=== PATIENT | female | born 1980 | race Caucasian/White ===

== ENCOUNTER 2022-02-22 08:39 | Outpatient (CLI) | payer BC, SELFPAY ==
--- NOTE | 2022-02-22 08:50 | MM_ITS ---
WS: [id number] BILATERAL SCREENING DIGITAL TOMOSYNTHESIS MAMMOGRAM WITH CAD HISTORY: SCREENING COMPARISON: 01/21/2021, 02/17/2021 Bilateral CC and MLO views with tomosynthesis and synthetic mammography submitted. Computer aided det ection analyzed. Breast composition: There are scattered areas of fibroglandular density. No suspicious masses, microc alcifications or architectural distortion. Well-circumscribed 18 x 15 mm mass middle depth LEFT breas t at 3:00. There is an adjacent biopsy clip. As per history this is a benign etiology. The LEFT breas t is otherwise negative. Stable RIGHT breast. MM/[place] [id number] IMPRESSION: BI-RADS: 2-Benign FOLLOW UP: 1 Year Follow-up
== END 2022-02-22 08:40 | disposition home or self-care (01) ==
LOC: RAD 08:44
PROVIDERS: PCP Family Medicine; Visit Provider Family Medicine
DX: Z12.31 Encounter for screening mammogram for malignant neoplasm of breast (principal)
CPT/HCPCS: 77063; 77067

== ENCOUNTER 2022-08-02 07:59 | Outpatient (CLI) | payer BC, SELFPAY ==
[2022-08-02 09:06] LABS: Chol HDL Ratio 3.81 mg/dL (0.0-4.40); Cholesterol 137 mg/dL (0-200); HDL Cholesterol 36 mg/dL (60-100); LDL Cholesterol Calculated 59 mg/dL (50-129); LDL HDL Ratio 1.64 RATIO (0.00-3.22); Triglycerides 212 mg/dL (0-150)
== END 2022-08-02 08:00 | disposition home or self-care (01) ==
LOC: LAB 08:03
PROVIDERS: PCP Family Medicine; Visit Provider Internal Medicine
DX: E78.5 Hyperlipidemia, unspecified (principal)
CPT/HCPCS: 36415; 80061

== ENCOUNTER 2022-12-18 09:30 | Emergency (ER) | payer BC, SELFPAY ==
[2022-12-18 09:38] VITALS: BP 131/87; PULSE 78; RESP 16; TEMP 36.6; O2SAT 97; BMI 34.9
--- NOTE | 2022-12-18 09:44 | ECG_ITS ---
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 Measurements Intervals [place] Rate: 69 P: 32 AK: 172 QRS: 6 QRSD: 91 T: 151 QT: 410 QTc: 440 Interpretive Statements SINUS RHYTHM POSSIBLE ANTERIOR MYOCARDIAL INFARCTION , OF INDETERMINATE AGE [30 ms Q WAVE IN V3/V4, OR R < 0.2 mV IN V4] MODERATE T-WAVE ABNORMALITY, CONSIDER LATERAL ISCHEMIA [-0.1+ mV T-WAVE IN I/aVL/V5/V6] No previous ECG available for comparison Electronically Signed On 12-18-2022 15:45:33 CDT by Luke Day M.D. [id number]
--- NOTE | 2022-12-18 10:18 | PC.NURSE ---
PT PLACED ON CONTINUOUS SPO2, NIBP, AND CM.
[2022-12-18] MEDS: meclizine 25 mg tablet PO (10:19)
[2022-12-18] MEDS: sodium chloride 0.9% 1,000 ML 999 ML IV (10:21)
[2022-12-18 10:25] LABS: Basophils # 0.1 10^3/uL (0.0-0.1); Basophils % 0.7 %; Eosinophils # 0.2 10^3/uL (0.0-0.8); Eosinophils % 1.8 %; Hematocrit 40.3 % (37.0-47.0); Hemoglobin 13.5 g/dL (11.5-15.3); Lymphocytes # 2.6 10^3/uL (0.8-4.8); Lymphocytes % 27.7 %; Mean Corpuscular HGB Conc 33.5 g/dL (30.0-36.0); Mean Corpuscular Volume 92.6 fl (81-99); Mean Platelet Volume 9.5 fL (7.4-10.4); Monocytes # 0.6 10^3/uL (0.2-0.9); Monocytes % 6.3 %; Neutrophils # 6.01 10^3/uL (1.8-7.7); Neutrophils % 63.4 %; Nucleated Red Blood Cells % 0 %; Platelet Count 379 10^3/cmm (130-400); Red Blood Count 4.35 10^6/uL (4.1-5.3); Red Cell Distribution Width 13.3 % (12.1-15.1); White Blood Count 9.5 10^3/uL (4.0-10.0)
--- NOTE | 2022-12-18 10:30 | CTR_ITS ---
PROCEDURE INFORMATION: Exam: CT Head Without Contrast Exam date and time: 12/18/2022 10:38 AM Age: 42 years old Clinical indication: Dizziness; Additional info: Dizziness, new, continuous TECHNIQUE: Imaging protocol: Computed tomography of the head without contrast. Radiation optimization: All CT scans at this facility use at least one of these dose optimization techniques: automated exposure control; mA and/or kV adjustment per patient size (includes targeted exams where dose is matched to clinical indication); or iterative reconstruction. REPORTING DATA: Count of CT and Cardiac NM exams in prior 12 months: This patient has received 0 known CTs and 0 known cardiac nuclear medicine studies in the 12 months prior to the current study. COMPARISON: No relevant prior studies available. RADIATION DOSE METRICS: Total DLP (mGy-cm): 1014.96 FINDINGS: Brain: Normal. No hemorrhage. No space-occupying masses or areas of mass effect. No edema or midline shift. Cortical sulci are unremarkable for age. Cerebral ventricles: No ventriculomegaly. Paranasal sinuses: Visualized sinuses are unremarkable. No fluid levels. Mastoid air cells: Visualized mastoid air cells are well aerated. Bones/joints: Unremarkable. Soft tissues: Unremarkable. CT/CT head wo con* [id number] IMPRESSION: Negative CT examination of the head. No acute intracranial abnormalities.
--- NOTE | 2022-12-18 10:30 | XRR_ITS ---
PROCEDURE INFORMATION: Exam: XR Chest Exam date and time: 12/18/2022 10:43 AM Age: 42 years old Clinical indication: Other: Dizziness, new, HX cardiac dz; Prior surgery; Surgery date: 6+ months; Surgery type: Heart TECHNIQUE: Imaging protocol: Radiologic exam of the chest. Views: 1 view. COMPARISON: No relevant prior studies available. FINDINGS: Lungs: Unremarkable. No consolidation. Pleural spaces: Unremarkable. No pleural effusion. No pneumothorax. Heart/Mediastinum: Cardiac silhouette appears mildly enlarged on this portable chest. Bones/joints: Prior median sternotomy otherwise unremarkable for age. XR/XR chest 1V [id number] IMPRESSION: Mild cardiomegaly otherwise negative chest.
--- NOTE | 2022-12-18 10:37 | ED_ITS ---
HPI - Dizziness General: Chief Complaint: Dizziness Stated Complaint: Dizzy spells on and off, Light headedness Time Seen by Provider: 12/18/22 09:44 Source: patient Mode of arrival: ambulatory Limitations: no limitations History of Present Illness: HPI Narrative: Patient presents to the emergency department today accompanied by significant other for evaluation treatment of new episodes of dizziness. Patient states that while driving yesterday she started experiencing episodes of dizziness. She does indicate visual changes during these episodes stating she gets tunnel v ision but, if episodes last long enough will get sparkles in her visual field. She has not had complete loss of consciousness but states she has felt very close. She complains of a frontally located headache during these times. She denies chest pain or shortness of breath. She states she has not been ill recently with any vomiting, diarrhea, or abdominal pains. She denies any upper respiratory concerns such as sinus infection. She denies tingling or numbness in the extremities or face. Patient is concerned because she has never had episodes like this before. She does have a significant cardiac history stating she has had 2 MIs and multiple bypass surgeries. She is anticoagulated for her stents. She reports a significant family history of CHF and early mortality rate due to cardiac complications. Patient reports constantly feeling off since yesterday but states she continues to have episodes of dizziness. Past medical history also includes iron deficiency anemia for which she takes iron tablets. She has elevated cholesterol for which she takes atorvastatin and high blood pressure for which she takes metoprolol and losartan. Review of Systems General: Reports: 10 or more systems reviewed and unremarkable except in HPI and below PFSH ED PFSH: Medical History HTN (hypertension) Hyperlipemia Surgical History Hx of CABG Family History Grandfather Heart attack Father Heart attack Hyperlipidemia Hypertension History of quadruple bypass Social History Smoking and tobacco status: former smoker Physical Exam Const: COMMON NORMALS: no acute distress, patient oriented x3 and alert HENMT: OTHER: Mucous membranes are moist. No signs of nasal congestion. No epistaxis. No signs of nystagmus. Eye: COMMON NORMALS: Equal, round and reactive pupils present, EOMs intact bilaterally and conjunctivae normal CONJUNCTIVA: Yes conjunctivae normal PUPIL: Yes Equal, round and reactive pupils present Neck/C-Spine: COMMON NORMALS: no meningeal signs and no JVD Lymph: LYMPHATIC: no lymphadenopathy noted Resp: COMMON NORMALS: normal respiratory effort, No retractions and No use of accessory muscles Cardio: COMMON NORMALS: no JVD and regular rate RATE: regular rate : COMMON NORMALS: Yes no CVA tenderness BLADDER/KIDNEY EXAM: Yes no CVA tenderness Back/Pelvis: COMMON NORMALS: no CVA tenderness, thoracic and lumbar spine normal to inspection and thoraco-lumbar ROM normal Extremity: COMMON NORMALS: normal to inspection, full ROM and no pedal edema NARRATIVE EXTREMITY EXAM: Patient was able to independently ambulate to the bathroom and through the department. Neuro: COMMON NORMALS: patient oriented x3 SENSORIUM/ORIENTATION: Yes alert MENINGEAL SIGNS: Yes no meningeal signs CRANIAL NERVES: Yes CN normal except as noted SPEECH: speech normal MOTOR EXAM: 5/5 motor strength present throughout Skin: COMMON NORMALS: no rashes or lesions noted and turgor normal GENERAL SKIN EXAM: no rashes or lesions noted and turgor normal Course Vital Signs: Vital signs: Vital Signs Temperature 97.8 F 12/18/22 09:38 Pulse Rate 66 12/18/22 13:03 Respiratory Rate 19 H 12/18/22 13:03 Blood Pressure 128/68 12/18/22 13:03 Pulse Oximetry 99 12/18/22 13:03 Oxygen Delivery Me thod Room Air 12/18/22 09:38 MDM - Dizziness Medical Decision Making Patient presented to the emergency department today for concerns of feeling off and having off-and-on episodes of dizziness since yesterday. Patient has a significant cardiac history and we did an evaluation including EKG, troponins, BNP, and chest x-ray. No acute concerns were found though she does have a slight cardiomegaly consistent with a BNP of approximately 200. However, I do not think that this is causing her acute dizziness at this time. CT of her head revealed no signs of any intracranial bleeding due to blood thinner use and no signs of mass. Patient's hemoglobin was within normal limits and showed no signs of an elevated white blood cell count concerning for infection. Patient was well-hydrated and showed no electrolyte imbalance. Thyroid was normal. No signs of substance found on urine drug screen. Based on these negative evaluations I do feel better about getting her in with ENT to discuss possible vertigo. Patient was given meclizine which seemed to help as she was ambulating throughout the department during her time here. Patient was discharged with continued meclizine and a referral to ENT to discuss vertigo. Explained to her that she may be able to treat with medication or physical therapy as needed but, went over strict return precautions for severe headaches, syncopal episodes, chest pains, shortness of breath, facial droop, slurred speech, fevers, or vomiting. Patient verbalized understanding and agreement to treatment plan. Lab Data 12/18/22 10:10 12/18/22 10:10 Radiology Impressions Chest X-Ray 12/18/22 10:30 IMPRESSION: Mild cardiomegaly otherwise negative chest. Head CT 12/18/22 10:30 IMPRESSION: Negative CT examination of the head. No acute intracranial abnormalities. Laboratory Results WBC 9.5 10^3/uL (4.0-10.0) 12/18/22 10:10 RBC 4.35 10^6/uL (4.1-5.3) 12/18/22 10:10 Hgb 13.5 g/dL (11.5-15.3) 12/18/22 10:10 Hct 40.3 % (37.0-47.0) 12/18/22 10:10 MCV 92.6 fl (81-99) 12/18/22 10:10 MCH 31.0 pg (28.0-34.0) 12/18/22 10:10 MCHC 33.5 g/dL (30.0-36.0) 12/18/22 10:10 RDW 13.3 % (12.1-15.1) 12/18/22 10:10 Plt Count 379 10^3/cmm (130-400) 12/18/22 10:10 MPV 9.5 fL (7.4-10.4) 12/18/22 10:10 Neut % (Auto) 63.4 % 12/18/22 10:10 Lymph % (Auto) 27.7 % 12/18/22 10:10 [place] % (Auto) 6.3 % 12/18/22 10:10 Eos % (Auto) 1.8 % 12/18/22 10:10 Baso % (Auto) 0.7 % 12/18/22 10:10 Neut # (Auto) 6.01 10^3/uL (1.8-7.7) 12/18/22 10:10 Lymph # (Auto) 2.6 10^3/uL (0.8-4.8) 12/18/22 10:10 [place] # (Auto) 0.6 10^3/uL (0.2-0.9) 12/18/22 10:10 Eos # (Auto) 0.2 10^3/uL (0.0-0.8) 12/18/22 10:10 Baso # (Auto) 0.1 10^3/uL (0.0-0.1) 12/18/22 10:10 Nucleated RBC % (auto) 0 % 12/18/22 10:10 Nucleated RBCs # 0.0 /100WBC 12/18/22 10:10 D-Dimer <= 0.27 ug/mIFEU (0-0.59) 12/18/22 10:10 Sodium 139 mmol/L (136-145) 12/18/22 10:10 Potassium 4.3 mmol/L (3.5-5.1) 12/18/22 10:10 Chloride 105 mmol/L (98-107) 12/18/22 10:10 Carbon Dioxide 23 mmol/L (22-29) 12/18/22 10:10 Anion Gap 15.3 (5-19) 12/18/22 10:10 BUN 7 mg/dL (6-20) 12/18/22 10:10 Creatinine 0.7 mg/dL (0.5-0.9) 12/18/22 10:10 GFR Calculation 90.9 mL/min (90-130) 12/18/22 10:10 Glucose 86 mg/dL (65-115) 12/18/22 10:10 Calculated Osmolality 285 mOsm/kg (285-295) 12/18/22 10:10 Calcium 8.8 mg/dL (8.5-10.5) 12/18/22 10:10 Total Bilirubin 0.2 mg/dL (0.15-1.2) 12/18/22 10:10 AST 17 U/L (0-32) 12/18/22 10:10 ALT 8 U/L (0-33) 12/18/22 10:10 Alkaline Phosphatase 77 U/L (35-105) 12/18/22 10:10 Troponin T Baseline 6 ng/L (0-10) 12/18/22 10:10 Troponin T 120 Minute 6.00 ng/L (0-10) 12/18/22 12:06 Delta Troponin T 0 ABS# (0-10) 12/18/22 12:06 NT-Pro-B Natriuret Pep 246 pg/mL (0-125) H 12/18/22 10:10 Total Protein 7.4 g/dL (6.6-8.7) 12/18/22 10:10 Albumin 4.3 g/dL (3.5-5.2) 12/18/22 10:10 Globulin 3.1 g/dL (1.3-4.6) 12/18/22 10:10 TSH 1.41 uIU/mL (0.27-4.20) 12/18/22 10:10 Urine Color Yellow (Yellow) 12/18/22 10:10 Urine Appearance Clear (CLEAR) 12/18/22 10:10 Urine pH 6 (5-7) 12/18/22 10:10 Ur Specific [place] 1.010 (1.005-1.030) 12/18/22 10:10 Urine Protein Neg (Negative) 12/18/22 10:10 Urine Glucose (UA) Norm (Normal) 12/18/22 10:10 Urine Ketones Negative (Negative) 12/18/22 10:10 Urine Blood Neg (Negative) 12/18/22 10:10 Urine Nitrate Negative (Negative) 12/18/22 10:10 Urine Bilirubin Neg (Negative) 12/18/22 10:10 Urine Urobilinogen Norm mg/dL (Negative) 12/18/22 10:10 Ur Leukocyte Esterase 1+ (Negative) H 12/18/22 10:10 Urine RBC None /hpf (0-2) 12/18/22 10:10 Urine WBC 15-25 /hpf (0-5) H 12/18/22 10:10 Ur Squamous Epith Cells 0-4 /hpf (0-5) H 12/18/22 10:10 Amorphous Sediment Not Reportable 12/18/22 10:10 Urine Bacteria 1+ /hpf (NONE) H 12/18/22 10:10 Urine Opiates Screen Negative ng/mL (Negative) 12/18/22 10:10 Ur Barbiturates Screen Negative ng/mL (Negative) 12/18/22 10:10 Ur Phencyclidine Scrn Negative ng/mL (Negative) 12/18/22 10:10 Ur Amphetamines Screen Negative ng/mL (Negative) 12/18/22 10:10 U Benzodiazepines Scrn Negative ng/mL (Negative) 12/18/22 10:10 Urine Cocaine Screen Negative ng/mL (Negative) 12/18/22 10:10 U Marijuana (THC) Screen Negative ng/mL (Negative) 12/18/22 10:10 Discharge Plan Discharge Patient Disposition: Home Clinical Impression: Dizziness Condition: Stable Prescriptions: New meclizine 25 mg tablet 25 mg PO QID PRN (Reason: dizziness) Qty: 40 0RF No Action clopidogrel 75 mg tablet 75 mg PO QAM atorvastatin 80 mg tablet 80 mg PO BEDTIME metoprolol succinate 25 mg tablet extended release 24 hr 25 mg PO QAM Repatha SureClick 140 mg/mL pen injector 140 mg SUBCUT .every 2 weeks citalopram 20 mg tablet 20 mg PO QAM losartan 25 mg tablet 12.5 mg PO BEDTIME ferrous sulfate 325 mg (65 mg iron) tablet 325 mg PO BEDTIME biotin 800 mcg Tablet 800 mcg PO DAILY Vitamin B-12 1,000 mcg Tablet 1,000 mcg PO QAM Aspir-81 81 mg Tablet,Delayed Release (Dr/Ec) 81 mg PO QAM ergocalciferol (vitamin D2) 1,250 mcg (50,000 unit) capsule 50,000 unit PO Q7D Rx Instructions: on monday metformin 500 mg tablet extended release 24 hr 500 mg PO BID Ozempic 2 mg/dose (8 mg/3 mL) pen injector 2 mg SUBCUT Q7D Rx Instructions: on sundays Collagen Skin Renewal 30-833.3 mg Tablet 1 tab PO QAM Discharge Orders: Discharge ED (Routine); Ordered 12/18/22 Ordered By: Kayla Souza Referrals: Jennifer George DO [Primary Care Provider] - Discharge Diet: Usual diet Discharge Activity: Increase activity as tolerated Patient Instructions: Dizziness (ED) Activity Restrictions/Additional Instructions: Your evaluation today revealed no acute concerns involving your heart. Imaging of your brain showed no signs of any accidental bleeds or findings of masses affecting your balance center. Your hemoglobin levels are within normal limits and you show no signs of infection. Your electrolytes are within normal limits and you do not show any signs of dehydration. With these negative findings, I have referred you on to ENT to discuss the possibility of vertigo. Depending on the type of vertigo, some people require physical therapy or, continued medical management. I have provided you some medication to help combat dizziness but, still would like you to have follow-up through ENT. If for any reason you develop high fever, severe headache, one-sided facial droop or slurred speech, vomiting, chest pains, or shortness of breath you need to return to the emergency department. Coding Level of Care Code ED Station Examiner for Aletha Middleton
[2022-12-18 10:52] LABS: Alanine Aminotransferase 8 U/L (0-33); Albumin Level 4.3 g/dL (3.5-5.2); Alkaline Phosphatase 77 U/L (35-105); Anion Gap 15.3 (5-19); Aspartate Amino Transferase 17 U/L (0-32); Blood Urea Nitrogen 7 mg/dL (6-20); Calcium 8.8 mg/dL (8.5-10.5); Carbon Dioxide 23 mmol/L (22-29); Chloride 105 mmol/L (98-107); Globulin 3.1 g/dL (1.3-4.6); Glomerular Filtration Rate 90.9 mL/min (90-130); Glucose 86 mg/dL (65-115); Osmolality Calculated 285 mOsm/kg (285-295); Potassium 4.3 mmol/L (3.5-5.1); Sodium 139 mmol/L (136-145); Total Bilirubin 0.2 mg/dL (0.15-1.2); Total Protein 7.4 g/dL (6.6-8.7)
[2022-12-18 10:55] LABS: Add Urine Microscopic? YES; Bilirubin Urine Neg (Negative); Blood Urine Neg (Negative); Glucose Urine UA Norm (Normal); Ketones Urine Negative (Negative); Leukocyte Esterase Urine 1+ (Negative); Nitrate Urine Negative (Negative); Protein Urine Neg (Negative); Urine Appearance Clear (CLEAR); Urine Color Yellow (Yellow); Urobilinogen Urine Norm (Negative); pH Urine 6 (5-7)
[2022-12-18 10:56] LABS: Add Urine Culture? Yes; Bacteria Urine 1+ /hpf; Squamous Epithelial Cell Urine 0-4 /hpf (0-5); WBC Urine 15-25 /hpf (0-5)
[2022-12-18 10:58] LABS: Amphetamines Screen Urine Negative (Negative); Barbiturates Screen Urine Negative (Negative); Benzodiazepines Screen Urine Negative (Negative); Cocaine Screen Urine Negative (Negative); Opiate Screen Urine Negative (Negative); PCP Screen Urine Negative (Negative); THC Screen Urine Negative (Negative)
[2022-12-18 11:09] LABS: D Dimer <= 0.27 ug/mIFEU (0-0.59)
[2022-12-18 11:14] LABS: Troponin(5th) Baseline 6 ng/L (0-10)
[2022-12-18 11:23] LABS: NT Pro B Type Natriuretic Pept 246 pg/mL (0-125); Thyroid Stimulating Hormone 1.41 uIU/mL (0.27-4.20)
[2022-12-18 13:02] LABS: Troponin 5 2HR Delta 0 ABS# (0-10)
[2022-12-18 13:03] VITALS: BP 128/68; PULSE 66; RESP 19; O2SAT 99
--- NOTE | 2022-12-19 09:39 | PC.SOCIAL ---
Addendum entered by Aruna Anderson 01/05/23 12:49: manager acquisition received the following message from the ENT clinic regarding follow up appointment: pt declines referral 12/29/2022 Original Note: ENT Referral Referral sent to ENT at this time. Clinic to contact patient with appt date/time.
== END 2022-12-18 13:04 | disposition home or self-care (01) ==
PROVIDERS: Family Medicine; Emergency Provider Physician Assistant; PCP Family Medicine
DX: R42 Dizziness and giddiness (principal); Z79.82 Long term (current) use of aspirin; Z79.84 Long term (current) use of oral hypoglycemic drugs; Z87.891 Personal history of nicotine dependence; I10 Essential (primary) hypertension; E78.5 Hyperlipidemia, unspecified
CPT/HCPCS: 36415; 70450; 71045; 80053; 80306; 81001; 83880; 84443; 84484; 85025; 85378; 87086; 93005; 99285; J7030; J8597